=== PATIENT | male | born 1935 | race Caucasian/White ===

== ENCOUNTER 2017-06-10 05:37 | Inpatient (IN) | payer MEDICARE, OTHER ==
[2017-06-10 06:23] LABS: Hematocrit 44 % (42-52); Hemoglobin 14.6 g/dl (14.0-18.0); Mean Corpuscular HGB Conc 33 g/dl (31-36); Mean Corpuscular Hemoglobin 32 pg (27-31); Mean Corpuscular Volume 96 fL (80-94); Mean Platelet Volume 8 um3 (7.4-10.4); Red Blood Count 4.62 10^6/ul (4.0-5.4); Red Cell Distribution Width 13 % (10.5-15); White Blood Count 14.6 10^3/ul (3.5-10.8)
[2017-06-10 06:35] LABS: Albumin 4.1 g/dL (3.2-5.2); BUN/Creatinine Ratio 16.5 (8-20); Calcium 9.7 mg/dL (8.6-10.3); EGFR Non-African American 74.7 (>60); Globulin 2.9 g/dL (2-4); Potassium 3.9 mmol/L (3.5-5.0); Total Bilirubin 0.7 mg/dL (0.2-1.0)
--- NOTE | 2017-06-10 06:35 | ED ---
Chay Dixon Benjamin, scribed for Caitlin Verde MD on 06/10/17 at 0621 . Altered Mental Status - HPI Summary HPI Summary: 81yo male BIBA for confusion. Pt woke up this morning confused around 3-4am when pt got up for bathroom. Per , pt had expressive aphasia. Pt reports fever, PERALTA, fatigue, neck pain, and weakness yesterday evening. Pt denies possible tick bites. Neck pain or PERALTA has resolved, and pt is able to talk now. Last seen normal around 11pm-12am. - History Of Current Complaint Stated Complaint: CONFUSION Hx Obtained From: Patient, Family/Tar Leveler - Last Known Well Date: 11pm Onset/Duration: Resolved Timing: Constant, Lasting Minutes Severity Initially: Moderate Severity Currently: None Character: Confusion Aggravating Factor(s): Nothing Alleviating Factor(s): Nothing Associated Signs And Symptoms: Positive: Fever, Nuchal Rigity, Headache, Weakness - Allergies/Home Medications Allergies/Adverse Reactions: Allergies Allergy/AdvReac Type Severity Reaction Status Date / Time Ramipril Allergy Mild Rash Verified 03/29/15 08:31 PMH/Surg Hx/FS Hx/Imm Hx Endocrine/Hematology History: Reports: Hx Thyroid Disease - hypo Cardiovascular History: Reports: Hx Hypertension Neurological History: Denies: Other Neuro Impairments/Disorders - Surgical History Surgery Procedure, Year, and Place: right NARAYAN. cardiac stent x2 Infectious Disease History: No Infectious Disease History: Denies: Hx Clostridium Difficile, Hx Hepatitis, Hx Human Immunodeficiency Virus (HIV), Hx of Known/Suspected MRSA, Hx Shingles, Hx Tuberculosis, Hx Known/ Suspected VRE, Hx Known/Suspected VRSA, History Other Infectious Disease, Traveled Outside the [place] in Last 30 Days - Family History Known Family History: Positive: Hypertension Negative: Cardiac Disease, Diabetes - Social History Occupation: Retired Lives: With Family Alcohol Use: Rare Substance Use Type: Reports: None Smoking Status (MU): Never Smoked Tobacco Have You Smoked in the Last Year: No Review of Systems Positive: Fever, Fatigue. Negative: Chills, Skin Diaphoresis Eyes: Negative ENT: Negative Cardiovascular: Negative Respiratory: Negative Gastrointestinal: Negative Genitourinary: Negative Positive: Arthralgia - neck pain Skin: Negative Positive: Headache, Weakness Psychological: Normal All Other Systems Reviewed And Are Negative: Yes Physical Exam Triage Information Reviewed: Yes Vital Signs On Initial Exam: Initial Vitals Temp Pulse Resp BP Pulse Ox 99.1 F 83 16 157/70 96 06/10/17 05:46 06/10/17 05:46 06/10/17 05:46 06/10/17 05:46 06/10/17 05:46 Vital Signs Reviewed: Yes Appearance: Positive: Well-Appearing, No Pain Distress, Well-Nourished Skin: Positive: Warm, Skin Color Reflects Adequate Perfusion, Dry Head/Face: Positive: Normal Head/Face Inspection Eyes: Positive: EOMI, JAYLA ENT: Positive: Hearing grossly normal, Pharynx normal, TMs normal Neck: Positive: Supple, Nontender Respiratory/Lung Sounds: Positive: Clear to Auscultation, Breath Sounds Present. Negative: Rales, Rhonchi Cardiovascular: Positive: RRR. Negative: Murmur Abdomen Description: Positive: Nontender, Soft. Negative: Distended, Guarding Bowel Sounds: Positive: Present Musculoskeletal: Positive: Strength/ROM Intact Neurological: Positive: Sensory/Motor Intact, Alert, Oriented to Person Place, Time, CN Intact II-III Psychiatric: Positive: Affect/Mood Appropriate - Juan Coma Scale Coma Scale Total: 15 Diagnostics - Vital Signs Vital Signs Temp Pulse Resp BP Pulse Ox 06/10/17 06:00 16 06/10/17 05:52 88 18 96 06/10/17 05:47 99.1 F 83 16 157/70 97 06/10/17 05:46 99.1 F 83 16 157/70 96 - Laboratory Lab Results: Lab Results 06/10/17 Range/Units 05:47 WBC 14.6 H (3.5-10.8) 10^3/ul RBC 4.62 (4.0-5.4) 10^6/ul Hgb 14.6 (14.0-18.0) g/dl Hct 44 (42-52) % MCV 96 H (80-94) fL MCH 32 H (27-31) pg MCHC 33 (31-36) g/dl RDW 13 (10.5-15) % Plt Count 143 L (150-450) 10^3/ul MPV 8 (7.4-10.4) um3 Neut % (Auto) 92.4 H (38-83) % Lymph % (Auto) 2.7 L (25-47) % [place] % (Auto) 4.4 (1-9) % Eos % (Auto) 0.1 (0-6) % Baso % (Auto) 0.4 (0-2) % Absolute Neuts (auto) 13.5 H (1.5-7.7) 10^3/ul Absolute Lymphs (auto) 0.4 L (1.0-4.8) 10^3/ul Absolute Monos (auto) 0.6 (0-0.8) 10^3/ul Absolute Eos (auto) 0 (0-0.6) 10^3/ul Absolute Basos (auto) 0.1 (0-0.2) 10^3/ul Absolute Nucleated RBC 0.01 10^3/ul Nucleated RBC % 0 Result Diagrams: 06/10/17 05:47 Lab Statement: Any lab studies that have been ordered have been reviewed, and results considered in the medical decision making process. - EKG 0548. Cardiac Rate: NL - 88bpm EKG Rhythm: Sinus Rhythm ST Segment: Normal Ectopy: None National Institutes Of Health - NIH Scale Level of Consciousness: Alert/Keenly Responsive Ask Patient the Month and His/Her Age: Both Correct Ask Pt to Open/Close Eyes and Critical Care Rn/Release Non-Paretic Hand: Both Correctly Best Gaze (Only Horizontal Eye Movement): Normal Visual Field Testing: No Visual Loss Facial Paresis-Pt to Smile & Close Eyes or Grimace Symmetry: Normal/Symmetrical Motor Function - Right Arm: No Drift-Holds 10 Seconds Motor Function - Left Arm: No Drift-Holds 10 Seconds Motor Function - Right Leg: No Drift-Holds 10 Seconds Motor Function - Left Leg: No Drift-Holds 10 Seconds Limb Ataxia-Must be out of Proportion to Weakness Present: Absent Sensory (Use Pinprick to Test Arms/Legs/Trunk/Face): Normal Best Language (Describe Picture, Name Items): No Aphasia Dysarthria (Read Several Words): Normal Extinction and Inattention: No Abnormality Total Score: 0 Altered Mental Statu Course/Dx - Course Course Of Treatment: 81 yo male with confusion and aphasia this am, 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 His nih scale on arrival is zero and his symptoms have resolved, he is getting a CTA head and neck (because of the neck pain) and CT brain. His labs are just starting to come back and he does have a leukocytosis, IVF at 30 cc/kg have been ordered in case this ends up being sepsis and he will be signed out to the am physician to present to the hospitalist for admission - Diagnoses Discharge Diagnoses: Aphasia, Leucocytosis Discharge - Discharge Plan Condition: Improved Disposition: HOME The documentation as recorded by the Chay serrano Benjamin accurately reflects the service I personally performed and the decisions made by me, Caitlin Verde MD.
[2017-06-10 06:37] LABS: Troponin I 0.03 ng/mL (<0.04)
[2017-06-10] MEDS ORDERED: Iohexol 350* (CONTRAST) 500 ML MDV IV ONE ×2 (06:47→07:22)
[2017-06-10] MEDS ORDERED: NS 0.9% 1000 ML* 1,000 ML IV ONE (06:47)
[2017-06-10 08:02] LABS: Urine Bilirubin Negative (Negative); Urine Glucose Negative (Negative); Urine Nitrite Negative (Negative)
--- NOTE | 2017-06-10 08:11 | RAD ---
Indication: Confusion. Neck pain. CT of the brain was performed without IV contrast. Comparison is made with previous exam dated May 12, 2013. Ventricular structures are midline. No midline shift is noted. The extra-axial spaces are unremarkable. There is no evidence of intracranial mass or hemorrhage. Old lacunar infarct involving the left basal ganglia is noted. This was present on a prior study dated May 12, 2013 and represents old lacunar infarct. Mastoid air cells are unremarkable. Paranasal sinuses are unremarkable. IMPRESSION: Old lacunar infarct left basal ganglia. There is no evidence of intracranial mass or hemorrhage is noted.
[2017-06-10] MEDS ORDERED: Temazepam CAP* 15 MG PO PRN (08:12)
[2017-06-10] MEDS ORDERED: Al Hydrox/Mg Hydrox/Simet LIQ* 30 ML UDC PO PRN (08:12)
[2017-06-10] MEDS ORDERED: Magnesium Hydroxide LIQ* 30 ML UDC PO PRN (08:12)
[2017-06-10] MEDS ORDERED: Acetaminophen TAB* 325 MG PO PRN (08:12)
--- NOTE | 2017-06-10 08:18 | RAD ---
INDICATION: Confusion COMPARISON: None TECHNIQUE: An AP portable view obtained at 0626 hours is submitted. FINDINGS: Bones/Soft Tissues: There are no acute bony findings. Cardiomediastinal: The cardiomediastinal silhouette is normal. Lungs: There are no infiltrates. There is mild hyperinflation. Pleura: There are no pleural effusions. Other: None IMPRESSION: NO ACTIVE DISEASE.
--- NOTE | 2017-06-10 08:25 | RAD ---
Indication: Neck pain, stroke. Contrast: Administered 159.7 ml of OMNIPAQUE 350 mgi/ml CTA of the neck and head was performed after IV contrast administration. Coronal, sagittal reconstructed images were obtained. The origins of the great vessels are grossly unremarkable. No evidence of calcification is noted. The common carotid arteries are normal bilaterally. No intimal wall thickening is noted. Carotid artery bifurcations are grossly unremarkable. The cervical carotid arteries demonstrates no evidence of stenosis. No evidence of carotid artery dissection is noted. The intracavernous portions of the carotid arteries are grossly unremarkable. The vertebral arteries and basilar artery are unremarkable. No evidence of vertebral artery dissection is noted. The intracranial carotid arteries demonstrates no evidence of atherosclerosis. Normal bifurcation into the anterior and middle cerebral arteries are noted. No aneurysmal dilatation or branch occlusion is noted. The basilar artery and posterior cerebral arteries are unremarkable. No branch occlusion is noted. IMPRESSION: No aneurysmal dilatation or branch occlusion is noted. No evidence of carotid artery dissection is noted.
[2017-06-10 08:28] LABS: C Reactive Protein 91.17 mg/L (< 5.00)
[2017-06-10] MEDS ORDERED: DOXYcycline CAP(*) 100 MG PO SCH (09:00)
[2017-06-10] MEDS: Clopidogrel TAB* 75 MG PO SCH (10:19)
[2017-06-10] MEDS: Docusate CAP* 100 MG PO SCH ×2 (10:19→21:31)
[2017-06-10] MEDS: Finasteride TAB* 5 MG PO SCH (10:19)
[2017-06-10] MEDS: Aspirin EC Low Dose* 81 MG TAB.EC PO SCH ×2 (10:19→11:15)
[2017-06-10] MEDS: Atorvastatin* 40 MG TAB PO SCH (10:19)
[2017-06-10] MEDS: Levothyroxine TAB* 75 MCG TAB PO SCH (10:19)
[2017-06-10] MEDS: Atenolol TAB* 25 MG PO SCH (10:20)
[2017-06-10] MEDS: NS 0.9% 1000 ML* 1,000 ML IV SCH ×2 (10:21→18:40)
--- NOTE | 2017-06-10 11:11 | HP ---
CC: Dr. Payne; Dr. Fraser; Dr. Traore, career specialist* HISTORY AND PHYSICAL: DATE OF ADMISSION: 06/10/17 PRIMARY CARE PROVIDER: Dr. Payne. CHIEF COMPLAINT: Confusion and dizziness. HISTORY OF PRESENT ILLNESS: Mr. De Leon is a 81-year-old male with history of coronary artery disease, hypercholesterolemia, and hypertension. He had been following up with Dr. Fraser in regards also to his moderate mitral regurgitation. He had been seeing Dr. Traore ever since September due to generalized skin pruritus. So far the cause is unidentified. The patient stated that he had been in his usual state of health. 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 He stated that he was extending his neck and it was hurting him. He also stated that he developed a headache in the evening, despite that continues to go to a scheduled dinner with his friend at a restaurant. His stated that during the dinner time he did not eat that well and he complained of headache. He came home and went to bed. At around 4 a.m., he woke up in the middle of the night to go to bathroom, which he usually does not do. On the way back, he appeared confused and had difficulty finding words. The patient's stated that he sat up at the head of the bed thinking that he is on the side of the bed. She had to leave him back to his side of the bed. He complained of feeling warm. He presented to the ED for evaluation. He still has problems communicating fully what happened. It appears that although his speech is fluent and clear, he has problems with explaining his thoughts. So far the workup included mild leucocytosis. He is going to be admitted with diagnosis of transient altered mental status. PAST MEDICAL HISTORY: 1. Coronary artery disease, status post two stents in 2014 and two stents in 2003. 2. History of moderate mitral regurgitation. 3. Inguinal hernia repair on the right. 4. History of hypercholesterolemia. 5. Skin pruritus under the care of Dr. Traore that occurred in the fall of 2015. 6. Carpal tunnel in 2013. 7. Hypertension. 8. Dyslipidemia. 9. Vasectomy. 10. Right hip replacement in 2011. MEDICATIONS: The patient is supposed to be off atenolol currently. He was supposed to take 12.5 mg every other day until the 12th of this month when he was supposed to stop. Nevertheless, he continues on taking it. The remaining medications include: 1. Inspra 50 mg daily. 2. Lipitor 40 mg daily. 3. Aspirin 81 mg daily. 4. Atenolol 12.5 mg every other day. 5. Nitrostat on a p.r.n. basis. 6. Levothyroxine 75 mcg daily. 7. Proscar 5 mg daily. 8. Plavix 75 mg daily. 9. Desloratadine 5 mg daily. 10. Xyzal 5 mg daily. ALLERGIES: Include RAMIPRIL. FAMILY HISTORY: Positive for mother with history of heart disease who at the age of 84 secondary to CHF. Her heart disease started being symptomatic in her 70s. Father had history of end-stage renal disease and dialysis, in his 80s also. 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 His surrogate is his , Acacia. He denies smoking. He drinks an occasional beer. There is no history of drug use. REVIEW OF SYSTEMS: Please see history of present illness. Note at the time of admission the patient denies dyspnea on exertion. Denies chest pain. Headache that occurred yesterday resolved. Currently denies dizziness although stated that he felt dizzy and unsteady on his feet at 4 a.m. in the morning when he got up. He still feels that he is not all the way back to normal and has problems verbalizing his thoughts. He stated that usually he does not have nocturia, but he did go to the bathroom today to urinate. He denies any increased urinary urgency, frequency or dysuria. All of the remaining 14 systems were reviewed with the patient and were otherwise negative. PHYSICAL EXAMINATION GENERAL: The patient is a very pleasant 81-year-old male, who is in no acute distress. Alert, awake, and oriented x3. VITAL SIGNS: Blood pressure 140/71, heart rate of 91, regular, respiratory rate 17, oxygen saturation 98% on room air, temperature 99.1. HEENT: Head atraumatic, normocephalic. Eyes: Pupils are equal and reactive to light and accommodation. Oropharynx clear. Mucosa moist. NECK: Supple. No JVD. No bruits bilaterally. RESPIRATORY: Clear to auscultation bilaterally. CARDIOVASCULAR: Regular rate and rhythm with 1/6 systolic ejection murmur at the auscultation of the apex. ABDOMEN: Soft and nontender. Bowel sounds present in all 4 quadrants. EXTREMITIES: There is no edema. Pulses +2 bilaterally. No clubbing or cyanosis. SKIN: On the evaluation of the skin, the patient has slight skin erythema, which appears to be mostly due to excoriations noted on his anterior trunk. There are a couple of tiny pustular eruptions noted in the area also. No other rashes are noted. NEUROLOGIC: Speech is clear. Cranial nerves II through XII are grossly intact. Motor strength is 5/5 bilaterally. He has no dysarthria. He does have some speech hesitancy, and he has troubles with otherwise overall explaining what happened in the past 24 hours. 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 [id number] is not dysmetric bilaterally. PSYCHIATRIC EVALUATION: The patient is oriented x3 with no evidence of anxiety or depression. LABORATORY DATA: Showed white blood cell count of 14.6, hemoglobin of 14.6, hematocrit of 44, MCV of 96, and platelets of 143. INR is 1.16. Sodium is 132, potassium 3.9, chloride 102, carbon dioxide 23, BUN 16, creatinine 0.97. Liver function tests unremarkable. C-reactive protein pending. Troponin of 0.03. Urinalysis shows specific gravity of 1.051, otherwise unremarkable. Portable chest x-ray impression: "No active disease." Brain CT impression: "Old lacunar left basal ganglia infarct. There was no evidence of intracranial mass or hemorrhage is noted." CT angiogram of the head and neck is pending at the time of dictation. The patient's EKG shows heart rate of 88 beats per minute with ventricular conduction delay. No specific ST changes in leads V2 and V3, most likely related to J-point elevation. Comparing from 2012 EKG which was similar. ASSESSMENT AND PLAN: Speech hesitancy, dizziness, and altered mental status in a patient who has mild leukocytosis. He had some nonspecific symptoms of headache and neck pain yesterday that resolved. He does have a history of being at picnic outdoors in the past several days. He walks his dog outdoors all the time. He did not notice tick bites though. At this point, differential is either of infectious etiology, which could be related to Lyme disease or any other infection for that matter. The patient's CRP is pending at the time of dictation. It could be also related to new ischemic CVA. At this point, his CT angiogram of the head is still pending and MRI is going to be obtained. The patient is going to be placed on overnight observation on telemetry monitored bed. Neuro checks are going to be instituted every 2 hours. The patient is going to be continued on aspirin and Plavix as antiplatelet medications. Due to leukocytosis and history of recent picnic, the patient is going to be placed empirically on doxycycline for possibility of Lyme disease and Lyme titers are going to be obtained. He is also going to be placed on intravenous hydration due to that his urine is definitely concentrated and indicates dehydration. In regards to his hypertension, he is going to be continued at this point on atenolol 12.5 mg daily. Inspra is not on the hospital formulary. In regards to the patient's dyslipidemia, his statin is going to be continued. For BPH, Proscar is going to be continued on daily basis. For DVT prophylaxis, the patient is going to be placed on heparin subcutaneously. The patient's code status is full and his surrogate is his . TIME SPENT: Approximately 72 minutes were spent on admission of this patient, more than half that time was spent [id number] with the patient during the interview and physical exam. ADDENDUM TO HISTORY AND PHYSICAL: Please note that just prior to patient's transfer from the emergency department to the inpatient unit, the patient developed a fever of 101. At this point, I will discontinue the patient's doxycycline and order ceftriaxone intravenously to treat empirically Lyme disease. So far, there are no other signs or symptoms to suggest any other infection. The patient's urinalysis had been unremarkable and chest x-ray also was within normal limits. Lyme disease serology is pending at the time of dictation. The patient's CT angiogram of the head was unremarkable also. The patient most likely had a toxic metabolic encephalopathy due to systemic inflammatory response syndrome due to unknown infection. Those above mentioned are present at admission. [id number] #: [id number] #: [id number] [facility] DIVISIONDeana
--- NOTE | 2017-06-10 11:31 | RAD ---
Indication: Stroke, confusion. Image sequences: Sagittal and axial T1, axial T2, FLAIR, diffusion and susceptibility weighted images of the brain were obtained. Ventricular structures are midline. No midline shift is noted. The extra-axial spaces are prominent consistent with atrophy. There is no evidence of intracranial mass or hemorrhage. No restriction of diffusion is noted. Susceptibility weighted images demonstrates no evidence of susceptibility artifact residual hemosiderin. FLAIR images demonstrates no evidence of vasogenic edema. Mastoid air cells and paranasal sinuses are unremarkable. IMPRESSION: No acute changes are noted. Central and cortical atrophy with no evidence of restriction of diffusion.
--- NOTE | 2017-06-10 12:36 | HP ---
HISTORY AND PHYSICAL: ADDENDUM: Please note that just prior to patient's transfer from the emergency department to the in patient unit, the patient developed a fever of 101. At this point, I will discontinue the patient's doxycycline and order ceftriaxone intravenously to treat empirically Lyme disease. So far, there a re no other signs or symptoms to suggest any other infection. The patient's urinalysis had been unr emarkable and chest x-ray also was within normal limits. Lyme disease serology is pending at the ti me of dictation. The patient's CT angiogram of the head was unremarkable also. The patient most frank vyas had a toxic metabolic encephalopathy due to systemic inflammatory response syndrome due to unkn own infection. Those above mentioned are present at admission. [id number] #: [id number]
[2017-06-10] MEDS: Heparin VIAL(*) 5000 UNITS/ML VIAL (FIVE THOUSAND) SUBCUT SCH ×2 (12:59→21:43)
[2017-06-10] MEDS: cefTRIAXone VIAL(*) 1,000 MG in NS 0.9% 50 ML* 50 ML IVPB SCH (12:59)
[2017-06-10] MEDS: metroNIDAZOLE TAB* 250 MG PO SCH ×2 (16:15→21:43)
[2017-06-11] MEDS: NS 0.9% 1000 ML* 1,000 ML IV SCH ×2 (01:28→08:45)
[2017-06-11 05:01] LABS: Hematocrit 39 % (42-52); Mean Corpuscular HGB Conc 33 g/dl (31-36); Mean Corpuscular Hemoglobin 32 pg (27-31); Mean Corpuscular Volume 97 fL (80-94); Mean Platelet Volume 7 um3 (7.4-10.4); Red Blood Count 4.08 10^6/ul (4.0-5.4); Red Cell Distribution Width 13 % (10.5-15); White Blood Count 9.5 10^3/ul (3.5-10.8)
[2017-06-11 05:57] LABS: BUN/Creatinine Ratio 19.7 (8-20); EGFR African American 127.2 (>60); EGFR Non-African American 98.9 (>60); Potassium 3.4 mmol/L (3.5-5.0)
[2017-06-11] MEDS: Heparin VIAL(*) 5000 UNITS/ML VIAL (FIVE THOUSAND) SUBCUT SCH ×3 (06:50→21:39)
[2017-06-11] MEDS: Clopidogrel TAB* 75 MG PO SCH (08:48)
[2017-06-11] MEDS: Aspirin EC Low Dose* 81 MG TAB.EC PO SCH (08:48)
[2017-06-11] MEDS: Levothyroxine TAB* 75 MCG TAB PO SCH (08:48)
[2017-06-11] MEDS: Atenolol TAB* 25 MG PO SCH (08:48)
[2017-06-11] MEDS: Finasteride TAB* 5 MG PO SCH (08:48)
[2017-06-11] MEDS: metroNIDAZOLE TAB* 250 MG PO SCH ×3 (08:48→21:38)
[2017-06-11] MEDS: Atorvastatin* 40 MG TAB PO SCH (08:48)
[2017-06-11] MEDS: Docusate CAP* 100 MG PO SCH ×2 (08:48→21:39)
[2017-06-11] MEDS: cefTRIAXone VIAL(*) 1,000 MG in NS 0.9% 50 ML* 50 ML IVPB SCH (12:44)
--- NOTE | 2017-06-11 15:34 | ED ---
Isai Dixon Auryana, scribed for Alexandre Montiel MD on 06/10/17 at 0854 . Progress - Progress Note Progress Note: Sign out from Dr. Verde to Dr. Montiel pending imaging results. 81 year old male presents to the ED with possible TIA. Patient reports that he is feeling better on ED physician visit. Dr. Chan is the admitting physician. - Results/Orders Results/Orders: CXR - NAD. CTA HEAD/NECK IMPRESSION: No aneurysmal dilatation or branch occlusion is noted. No evidence of carotid artery dissection is noted. CT BRAIN WO IMPRESSION: Old lacunar infarct left basal ganglia. There is no evidence of intracranial mass or hemorrhage is noted. Course/Dx - Course Course Of Treatment: Sign out from Dr. Verde to Dr. Montiel pending imaging results. 81 year old male presents to the ED with possible TIA. Patient reports that he is feeling better on ED physician visit. Dr. Chan is the admitting physician. CXR - NAD. CTA HEAD/NECK IMPRESSION: No aneurysmal dilatation or branch occlusion is noted. No evidence of carotid artery dissection is noted. CT BRAIN WO IMPRESSION: Old lacunar infarct left basal ganglia. There is no evidence of intracranial mass or hemorrhage is noted. Dr. Chan agrees to admit the patient to [facility] [place]. - Diagnoses Provider Diagnoses: Aphasia, Leucocytosis The documentation as recorded by the Isai serrano Auryana accurately reflects the service I personally performed and the decisions made by , Alexandre Montiel MD.
[2017-06-11] MEDS ORDERED: Potassium Chlor TAB* 10 MEQ TAB.ER PO ONE (16:58)
[2017-06-11] MEDS ORDERED: Magnesium Sulf 4 GM/100 ML IV* 4,000 MG/100 ML BAG IVPB ONE (17:30)
[2017-06-11] MEDS: KCL 20 MEQ/100 ML IVPREMIX* 20 MEQ/100 ML BAG IV SCH ×2 (18:22→22:49)
[2017-06-12 05:08] LABS: Hematocrit 38 % (42-52); Hemoglobin 12.6 g/dl (14.0-18.0); Mean Corpuscular HGB Conc 34 g/dl (31-36); Mean Corpuscular Hemoglobin 32 pg (27-31); Mean Corpuscular Volume 97 fL (80-94); Mean Platelet Volume 8 um3 (7.4-10.4); Red Blood Count 3.89 10^6/ul (4.0-5.4); Red Cell Distribution Width 13 % (10.5-15); White Blood Count 4.6 10^3/ul (3.5-10.8)
[2017-06-12 05:21] LABS: Albumin 3.1 g/dL (3.2-5.2); BUN/Creatinine Ratio 19.4 (8-20); Calcium 8.9 mg/dL (8.6-10.3); EGFR African American 147.2 (>60); EGFR Non-African American 114.4 (>60); Globulin 2.9 g/dL (2-4); Magnesium 2.1 mg/dL (1.9-2.7); Phosphorus 1.3 mg/dL (2.5-5.0); Potassium 4.1 mmol/L (3.5-5.0); Total Bilirubin 0.4 mg/dL (0.2-1.0)
[2017-06-12] MEDS: Heparin VIAL(*) 5000 UNITS/ML VIAL (FIVE THOUSAND) SUBCUT SCH (05:49)
[2017-06-12] MEDS: Levothyroxine TAB* 75 MCG TAB PO SCH (09:26)
[2017-06-12] MEDS: Aspirin EC Low Dose* 81 MG TAB.EC PO SCH (09:26)
[2017-06-12] MEDS: Clopidogrel TAB* 75 MG PO SCH (09:26)
[2017-06-12] MEDS: Atenolol TAB* 25 MG PO SCH (09:26)
[2017-06-12] MEDS: Finasteride TAB* 5 MG PO SCH (09:26)
[2017-06-12] MEDS: Atorvastatin* 40 MG TAB PO SCH (09:26)
[2017-06-12] MEDS: metroNIDAZOLE TAB* 250 MG PO SCH (09:26)
[2017-06-12] MEDS: Docusate CAP* 100 MG PO SCH (10:00)
[2017-06-12 12:55] VITALS: BP 155/75
--- NOTE | 2017-06-12 17:42 | PN ---
Subjective Date of Service: 06/11/17 Interval History: . He is still quite fatigued and weak with walking. denies apin - but ongoing diarrhea and related dehydration. Both his and he wish to remain in the hospital until tomorrow and feel he is too unsteady walking. they fear he will pass out based on his experience walking to the bathroom inside the room (when he almost passed out and became tachycardic). I agreed it was reasonable to continue to hydrate him and observe for resolution of his diarrhea (and give more IV antibiotics). . Family History: Unchanged from Admission Social History: Unchanged from Admission Past Medical History: Unchanged from Admission Objective Vital Signs 06/11/17 06/11/17 06/11/17 17:40 17:50 18:00 Temperature Pulse Rate Respiratory 23 20 18 Rate Blood Pressure (mmHg) O2 Sat by Pulse Oximetry 06/11/17 06/11/17 06/11/17 18:10 18:20 18:30 Temperature Pulse Rate Respiratory 16 21 14 Rate Blood Pressure (mmHg) O2 Sat by Pulse Oximetry Oxygen Devices in Use Now: Nasal Cannula Appearance: NAD at rest - weak with any walking; tired appearing. Ears/Nose/Mouth/Throat: Clear Oropharnyx Neck: NL Appearance and Movements; NL JVP Respiratory: Symmetrical Chest Expansion and Respiratory Effort Cardiovascular: NL Sounds; No Murmurs; No JVD Abdominal: - - diffuse tenderness Lymphatic: No Cervical Adenopathy Extremities: No Edema Skin: No Rash or Ulcers Neurological: Alert and Oriented x 3 Lines/Tubes/Other Access: Clean, Dry and Intact Peripheral IV Nutrition: Taking PO's Result Diagrams: 06/12/17 04:29 06/12/17 04:29 Additional Lab and Data: . Assess/Plan/Problems-Billing . Assessment: 81 yo man with acute gastrointestinal infection with diarrhea and fever and dehydration and electrolyte derangements. hypokalemia leukocytosis hypophosphatemia . - Patient Problems (1) Acute infective gastroenteritis Status: Acute Priority: High Code(s): A09 - INFECTIOUS GASTROENTERITIS AND COLITIS, UNSPECIFIED Comment: - continue IV antibiotics - leokocytosis noted, resolving - diarrhea noted (2) Hypokalemia Status: Acute Priority: High Code(s): E87.6 - HYPOKALEMIA (3) Metabolic acidosis Status: Acute Priority: High Code(s): E87.2 - ACIDOSIS (4) Hypophosphatemia Status: Acute Priority: High Code(s): E83.39 - OTHER DISORDERS OF PHOSPHORUS METABOLISM (5) Weakness generalized Status: Acute Priority: High Code(s): R53.1 - WEAKNESS
--- NOTE | 2017-06-12 17:44 | PN ---
Hospitalist Progress Note . HOSPITALIST DISCHARGE NOTE: See dc instructions and summary by me. Patient stable for dc dc instructions reviewed with the patient at the bedside. DC patient home today.
--- NOTE | 2017-06-15 16:11 | DS ---
DISCHARGE SUMMARY: DATE OF ADMISSION: 06/10/17 DATE OF DISCHARGE: 06/12/17 STATUS DURING HOSPITALIZATION: Inpatient. PRIMARY CARE PROVIDER: Armando Payne MD PRINCIPAL DISCHARGE DIAGNOSIS: Confusion and dizziness secondary to enteritis/ colitis. SECONDARY DIAGNOSES: 1. Coronary artery disease status post stenting in 2014 and back in 2003 (both episodes with 2 stents). 2. History of moderate mitral regurgitation. 3. Inguinal hernia repair on the right. 4. History of hypercholesterolemia. 5. Skin pruritus, under the care of Dr. Traore since fall in 2015. 6. Hypertension. 7. Carpal tunnel repair in 2013. 8. Vasectomy. 9. History of right hip replacement in 2011. DISCHARGE MEDICATION REGIMEN: New: 1. Ciprofloxacin 500 mg by mouth twice daily for 10 days. 2. Metronidazole 500 mg by mouth 3 times daily for 5 days, then stop. Continue all other medications includin. Aspirin 81 mg by mouth daily. 2. Atenolol 25 mg by mouth daily. 3. Lipitor 40 mg by mouth daily. 4. Clopidogrel 75 mg by mouth daily. 5. Desloratadine 5 mg by mouth daily. 6. Doxepin 75 mg by mouth at bedtime. 7. Eplerenone 50 mg by mouth daily. 8. Finasteride 5 mg by mouth daily. 9. Levothyroxine 75 mcg by mouth daily. 10. Nitroglycerin tab 0.4 mg strength 1 tab sublingually q.5 minutes p.r.n. chest pain, then call 911 if no relief. 11. Xyzal 5 mg by mouth daily. HISTORY OF PRESENT ILLNESS AND HOSPITAL COURSE: Please see the H and P by Dr. Annie Chan on 06/10/17. In brief, Mr. De Leon is a 81-year-old man with a history stated above who has been seeing Dr. Fraser for moderate mitral regurgitation and Dr. Traore for generalized skin pruritus. The patient states he was in his usual state of health until he was extending his neck and it was hurting him. He had headache in the evening that did not prevent him from going out to dinner with a friend. During the dinner, he did not eat well and complained of an ongoing headache. The patient came home and went to bed early and awoke around 4 a.m. the next morning to go to the bathroom and on the way back appeared confused and had difficulty finding words. The patient alerted his who urged him to come to the hospital. The workup was unremarkable at the emergency room with his speech being fluent and clear, although he had problems explaining his thoughts. He was noted to have a mild leukocytosis. The patient was admitted with an initial diagnosis of TIA. An urgent MRI did not show any intracranial abnormality. The patient then proceeded with spiking a high fever greater than 100 degrees Celsius with a peak of 102.5 as well as copious diarrhea. The patient was started on Cipro and Flagyl and very soon after that defervesced. Again, his initial white count was 14.6 and that was on 06/10/17 and the repeat CBC on 06/11/17 was a white count of 9.5. The patient was aggressively hydrated. He had 1 value of hypokalemia of 3.4 on 06/11/17 in the morning. This was repleted and by the morning of 06/12/17, his potassium was greater than 4. His phos was modestly depressed at 1.5. He did receive some phosphorus supplementation, though his repeat was not checked. His fever curve have normalized. He is not tachycardic at this time. He is not having appreciable diarrhea the morning of 06/12/17 and he is stable to be discharged home. I spent most of the discharge encounter talking about his hives and itching and discussing different antihistamines. At the time I spoke to him, I did not realize he was actually on an antihistamine and so when I went to discharge him, I did not start a new agent and referred him back to Dr. Traore who clearly has a greater amount of information about this particular problem and should be coordinating the treatment. Mr. De Leon was okay with that. Instructions for discharge were given to the patient and his and I gave him instructions to come back to the emergency room if he has any worrisome symptoms. CONDITION AT DISCHARGE: Stable. [id number]/[facility] #: [id number] [facility] CENTERDeana
== END 2017-06-12 13:18 | disposition home or self-care (01) | DRG 392 ==
LOC: ED 05:37 → MEDTELE 07:31 → OBSVTOIN 06-11 16:00
PROVIDERS: ADMIT Internal Medicine; ATTEND Internal Medicine
DX: A09 Infectious gastroenteritis and colitis, unspecified (principal); E87.2 Acidosis; I34.0 Nonrheumatic mitral (valve) insufficiency; E86.0 Dehydration; I25.10 Atherosclerotic heart disease of native coronary artery without angina pectoris; E78.00 Pure hypercholesterolemia, unspecified; I10 Essential (primary) hypertension; E78.5 Hyperlipidemia, unspecified; Z96.641 Presence of right artificial hip joint; N40.0 Benign prostatic hyperplasia without lower urinary tract symptoms; E03.9 Hypothyroidism, unspecified; R40.2412 Glasgow coma scale score 13-15, at arrival to emergency department; R29.700 NIHSS score 0; E87.6 Hypokalemia; E83.42 Hypomagnesemia; E83.39 Other disorders of phosphorus metabolism; R53.1 Weakness; L29.9 Pruritus, unspecified; Z95.5 Presence of coronary angioplasty implant and graft; Z98.52 Vasectomy status; Z88.8 Allergy status to other drugs, medicaments and biological substances; Z82.49 Family history of ischemic heart disease and other diseases of the circulatory system; Z84.1 Family history of disorders of kidney and ureter; Z79.82 Long term (current) use of aspirin; Z79.02 Long term (current) use of antithrombotics/antiplatelets
CPT/HCPCS: 36415; 70450; 70496; 70498; 70551; 71010; 80048; 80053; 81003; 83605; 83735; 84100; 84484; 85025; 85610; 86140; 86618; 87040; 87493; 93005; A9270-GY; G0378; J0696; J1644; J3480; Q9967

== ENCOUNTER 2017-12-25 11:35 | Day surgery (SDC) | payer MEDICARE, OTHER ==
[~2017-12-25 11:35] MED LIST: Buffered Lidocaine 0.9% SYRIN* 5 ML/SYR SYRINGE INTRADERM ONE; Metoclopramide TAB* 10 MG PO ONE; Naloxone* 0.4 MG/ML 1 ML VIAL IV PRN; fentaNYL* 50 MCG/ML 2 ML VIAL (100 MCG VIAL) IV PRN; oxyCODONE/Acetamin 5/325 MG* TAB PO PRN
[2017-12-25] MEDS ORDERED: Ketorolac INJ* 30 MG/ML 1 ML VIAL ONE (11:40)
[2017-12-25] MEDS ORDERED: Propofol* 10 MG/ML 20 ML BTL IV PUSH ONE (11:40)
[2017-12-25] MEDS ORDERED: Dexamethasone IV* 4 MG/ML 1 ML (4 MG) ONE (11:40)
[2017-12-25] MEDS ORDERED: Ondansetron INJ* 2 MG/ML VIAL ONE (11:40)
[2017-12-25] MEDS ORDERED: Lidocaine 2% PF * 5 ML VIAL ONE (11:40)
[2017-12-25] MEDS ORDERED: fentaNYL* 50 MCG/ML 2 ML VIAL (100 MCG VIAL) ONE ×2 (11:40→13:27)
[2017-12-25] MEDS ORDERED: Midazolam* 1 MG/ML 2 ML VIAL (2 MG) ONE (11:40)
[2017-12-25] MEDS ORDERED: Metoclopramide TAB* 10 MG ONE (12:06)
[2017-12-25] MEDS ORDERED: Bupivacaine 0.25% SDV* 30 ML ONE (14:06)
[2017-12-25 15:32] VITALS: BP 155/82
--- NOTE | 2017-12-26 01:13 | OP ---
DATE OF OPERATION: 12/25/17 - [facility] DATE OF : 39 SURGEON: Adolfo Mendez MD KISS MACHINE OPERATOR: AMARA Alonzo ANESTHESIOLOGIST: Dr. Archer. ANESTHESIA: Local MAC. PRE-OP DIAGNOSIS: Left carpal tunnel syndrome. POST-OP DIAGNOSIS: Left carpal tunnel syndrome. OPERATIVE PROCEDURE: Left open carpal tunnel release. INDICATIONS: Hermes has had progressive carpal tunnel. We walked about risks and benefits and he wanted to proceed. ESTIMATED BLOOD LOSS: 2 mL. COMPLICATIONS: None. FINDINGS: As expected. DESCRIPTION OF PROCEDURE: Hermes was seen in the preoperative holding area. The correct side, site, and procedure were identified. We came back to the operating room where the arm was prepped and draped in the usual fashion. A time-out was performed. The arm was exsanguinated and the tourniquet inflated to 250 mmHg. I made a 2 to 3-cm longitudinal incision in the standard location for an open carpal tunnel release. Dissection was carried down through the subcutaneous tissue and palmar fascia. The transverse carpal tunnel ligament was released just off the radial aspect of the hook of the hamate. The release was completed distally and proximally. I released the fascia and subcutaneous tissues were retracted to set it away with a Yanna retractor. Under direct visualization, I released the remainder of the transverse carpal ligament and distal antebrachial fascia to a level several centimeters proximal to the wrist flexion crease. Everything was looking good. The nerve was very nicely decompressed. I therefore irrigated out the wounds. Skin was closed with 4-0 nylon and wound was dressed with Xeroform, 4x4s, sterile Webril, and then Dieudonne wrap. He was taken to the recovery room in stable condition. [id number]/[facility] #: [id number] [facility]ITALDeana
== END 2017-12-25 15:25 | disposition home or self-care (01) ==
LOC: OREAST 11:35
PROVIDERS: ATTEND Orthopaedic Surgery Hand Surgery
DX: G56.03 Carpal tunnel syndrome, bilateral upper limbs (principal); I10 Essential (primary) hypertension; E78.00 Pure hypercholesterolemia, unspecified; E07.89 Other specified disorders of thyroid; Z79.82 Long term (current) use of aspirin; Z88.8 Allergy status to other drugs, medicaments and biological substances
CPT/HCPCS: A9270-GY; J1100; J1885; J2250; J2405; J2704; J3010

== ENCOUNTER 2018-01-18 11:00 | Emergency (ER) | payer MEDICARE, OTHER ==
--- OUTSIDE RECORDS SUMMARY | 2018-01-18 12:55 | XMS REPORT ---
:1935 External Reference #:[id number] Author Organization [facility] Address [address] [address] Phone [phone] Care Team Providers Name Role Phone Armando Payne MD Primary Care Physician Unavailable Payers Type Date Identification Numbers Payment Provider Subscriber Medicare Primary Effective: Policy Number: Medicare Hermes De Leon 2002 [id number] PayID: [id number] [address] [place] [address] Medigap Part B Policy Number: [id number] [employer] Hermes De Leon Group Number: [id number] [address] Group Name: [place] [address] PayID: [id number] Problems Date Description Provider Status Onset: 01/23/2012 Coronary arteriosclerosis Artemio Fraser M.D. Active Onset: 01/23/2012 Benign essential hypertension Artemio Fraser M.D. Active Onset: 01/23/2012 Pure hypercholesterolemia Artemio Fraser M.D. Active Onset: 09/28/2013 Mitral valve disorder Artemio Fraser M.D. Active Onset: 10/05/2015 Essential hypertension Artemio Fraser M.D. Active Onset: 11/26/2017 Bilateral carpal tunnel syndrome Adolfo Mendez MD Active Family History Date Family Member(s) Problem(s) Comments : (age 75 Years) Father due to Renal Failure : (age 84 Years) Mother due to CHF Social History Type Date Description Comments Marital Status Lives With Occupation Semi-retired Cigarette Use Never Smoked Cigarettes ETOH Use Occasionally consumes alcohol Smoking Patient has never smoked Recreational Drug Use Denies Drug Use Daily Caffeine Consumes on average 2 cups of regular coffee per day Exercise Type/Frequency Negative For Exercises rarely Exercise Type/Frequency Exercises sporadically Exercise Type/Frequency walks a lot Allergies, Adverse Reactions, Alerts Date Description Reaction Status Severity Comments 05/03/2012 Ramipril 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 by mouth Mauser, every M.D. evening Amlodipine Besylate 08/06 Active Tablets 2.5mg 270ta 2 by Artemio /2016 bs mouth in F. morning Mauser, and 2 by M.DAustin mouth at night Inspra 12/15 Active Tablets 25mg 180ta 2 by Artemio /2015 bs mouth F. every Mauser, day M.D. Aspirin 09/28 Active Tablets 81mg 1 po qd F. Chun Fraser Nitrostat 05/02 Active Tablets 0.4mg 25tab One SL s Q5Min Up F. To 3 Mauser, Doses M.D. prn Levoxyl Active Tablets 75mcg 1 tab qd Unknown /0000 Proscar Active Tablets 5mg 1 by Unknown /0000 mouth every day Doxepin HCL Active Capsules 25mg 3 cap at Unknown /0000 bedtime Levocetirizine Active Tablets 5mg 1 by Unknown Dihydrochloride /0000 mouth every day in the evening Desloratadine Active Tablets 5mg 1 by Unknown /0000 mouth every day in the morning Tramadol HCL 12/25 Hx Tablets 50mg 30tab 1 tablet s by mouth Mendez, - every 6 MD 01/07 hours needed pain Rosuvastatin 08/21 Hx Tablets 20mg 90tab 1/2 tab E78.00 Artemio Calcium s by mouth F. - every Mausechristian, 12/08 night at M.D. /2018 bedtime Amlodipine Besylate 12/07 Hx Tablets 5mg 30tab 1 by I10 s mouth F. - every Mauser, 12/15 day M.D. Nitro-Dur 10/05 Hx Patches 0.2mg/HR 30uni 1 patch I25.118 24HR ts every F. - day on Mauser, 10/11 in the M.D. /2014 in the morning, off in the at night Lipitor 02/02 Hx Tablets 40mg 90tab 1 by s mouth at F. - bedtime Mauser, 08/21 M.D. Simvastatin 01/22 Hx Tablets 40mg 1 PO QHS Elmer, /2012 MD Armando - 02/02 Glucosamine-Chondro 01/31 Hx Liquid [id number] bid Unknown itin /2010 mg/30ML - 11/29 Simvastatin 03/22 Hx Tablets 80mg 90tab 1/2 po s qhs F. - Mauser, 08/24 M.D. Aspirin 12/30 Hx Tablets 81mg 1 po qd F. - Mauser, 08/24 M.D. Simvastatin 08/15 Hx Tablets 80mg 90tab 1 PO QHS s F. - Mauser, 03/22 M.D. Simvastatin 03/21 Hx Tablets 20mg 90tab 1 PO qd s F. - Mauser, 06/23 M.D. Allergy Shots 12/31 Hx Weekly F. - Mauser, 08/24 M.D. Zocor 12/31 Hx Tablets 20mg 90tab 1 po qhs s F. - Mauser, 03/21 M.D. /2007 Vytorin 01/28 Hx Tablets 10-10mg 90tab 1 po qd s F. - Mauser, 12/31 M.D. /2007 Fish Oil 12/31 Hx 1000mg 1 po qd F. - Mauser, 09/28 M.D. /2012 Vytorin 10/02 Hx Tablets 10mg;10 30tab 1 po qd mg s F. - Mauser, 10/02 M.D. Vytorin 10/02 Hx Tablets 10mg;20 1 po qd mg F. - Mauser, 01/28 M.D. Zetia 08/15 Hx Tablets 10mg 90tab 1 po qd s F. - Mauser, 12/31 M.D. /2006 Altace 07/03 Hx Capsules 2.5mg 90cap 1 po qd s F. - Mauser, 05/03 M.D. /2011 Atenolol 01/23 Hx Tablets 25mg / tab po every F. - other Mauser, M.D. Levoxyl 01/23 Hx Tablets 175mcg 1 po qd F. - Mauser, 03/22 M.D. Vytorin 01/23 Hx Tablets 10mg;20 90tab 1 po qd mg s F. - Mauser, 08/15 M.D. /2005 Niaspan Extended 10/05 Hx Tablets 500mg 30tab 1 po qpm Artemio s F. - Mauser, 03/04 M.D. Lipitor 05/18 Hx Tablets 10mg 1 po qd F. - Mauser, 01/23 M.D. Atenolol 05/09 Hx Tablets 37.5mg 1 po qd F. - Mauser, 01/23 M.D. [place] Thyroid 05/03 Hx Tablets 60mg 30tab 1 po s m-w-f-sa F. - t Mauser, 01/23 M.D. [place] Thyroid 05/03 Hx Tablets 120mg 30tab 1 po s rozina-rashad F. - rs-sun Mauser, 01/23 M.D. /2004 Atenolol 05/03 Hx Tablets 25mg 90tab 1 po qd s F. - Mauser, 05/09 M.D. Folgard Rx 05/03 Hx Tablets 0.5mg;2.2 90tab 1 po qd mg;25MG s F. - Mauser, 06/22 M.D. Aspirin 05/02 Hx Suppositor 162mg 1 po qd Artemio F. - Mauser, 05/03 M.D. Atenolol 05/02 Hx Tablets 25mg 30tab 1 po bid Artemio s F. - Mauser, 05/03 M.D. Lipitor 05/02 Hx Tablets 40mg 30tab 1 po qd Artemio s F. - Mauser, 05/18 M.D. Plavix 05/02 Hx Tablets 75mg 30tab 1 po qd s F. - Mauser, 12/25 M.D. Aspirin Enteric 05/02 Hx Tablets 81mg 2 po qd Artemio F. - Mauser, 12/30 M.D. Simvastatin Hx Tablets 40mg 1 PO QHS Unknown /0000 - 08/15 Glucosamine-Chondro Hx Liquid [id number] bid Unknown itin /0000 mg/30ML hold - 01/31 Advil Hx 200 mg 2 Unknown /0000 tabs bid - 01/31 Vitamin C Hx 500mg 1 po qd Unknown /0000 - 06/10 Vit D Hx 2000Units one po Unknown /0000 qd - 08/24 Hydrochlorothiazide Hx Capsules 12.5mg 90cap 1 po qd Unknown /0000 s - 08/24 Vitamin D3 High Hx Capsules 1000Unit 30cap 1 by Unknown Potency /0000 s mouth - every 05/19 day( hold) Vitamin C Hx Capsules 500mg 1 by Unknown /0000 mouth - every 05/19 day ( hold) Clopidogrel Hx Tablets 75mg 90tab 1 by Artemio Bisulfate /0000 s mouth F. - every Mause, 08/06 day M.D. /2016 Prednisone Hx Tablets 20mg take 1 Unknown /0000 tablet - by mouth 12/25 twice a day Vital Signs Date Vital Result Comment 01/07/2018 Height 69.75 inches 5'9.75" Weight 198.00 lb Heart Rate 73 /min Respiratory Rate 14 /min Body Temperature 97.6 F Pain Level 0 BMI (Body Mass Index) 28.6 kg/m2 11/26/2017 Height 69.75 inches 5'9.75" Weight 198.00 lb Heart Rate 66 /min BP Systolic 142 mmHg BP Diastolic 78 mmHg Respiratory Rate 18 /min Body Temperature 97.3 F Pain Level 6 BMI (Body Mass Index) 28.6 kg/m2 08/21/2017 Height 69.75 inches 5'9.75" Weight 199.00 lb with boots Heart Rate 70 /min BP Systolic Sitting 168 mmHg Lue reg cuff BP Diastolic Sitting 74 mmHg Lue reg cuff BP Systolic Standing 148 mmHg Lue reg cuff BP Diastolic Standing 80 mmHg Lue reg cuff Respiratory Rate 16 /min BMI (Body Mass Index) 28.8 kg/m2 Ejection Fraction 60-65% echo 11/0705/20/2017 Height 69.75 inches 5'9.75" Weight 192.25 lb with shoes Heart Rate 58 /min BP Systolic Sitting 172 mmHg LA reg cuff BP Diastolic Sitting 96 mmHg LA reg cuff BP Systolic Standing 158 mmHg la repeat sitting BP Diastolic Standing 86 mmHg la repeat sitting BMI (Body Mass Index) 27.8 kg/m2 Ejection Fraction 60% - 65% echo 10/27/15 08/16/2016 Height 69.75 inches 5'9.75" Weight 189.00 lb with shoes Heart Rate 70 /min BP Systolic Sitting 156 mmHg LA reg cuff BP Diastolic Sitting 78 mmHg LA reg cuff BP Systolic Standing 160 mmHg LA reg cuff BP Diastolic Standing 82 mmHg LA reg cuff Respiratory Rate 16 /min BMI (Body Mass Index) 27.3 kg/m2 Ejection Fraction 60-65% 10/27/15 07/16/2016 Weight 185.00 lb with shoes Heart Rate 58 /min BP Systolic Sitting 124 mmHg La reg cuff BP Diastolic Sitting 66 mmHg La reg cuff Respiratory Rate 15 /min Ejection Fraction 60-65% date 10/27/15 ECHO 03/26/2016 Weight 195.00 lb with shoes Heart Rate 56 /min BP Systolic Sitting 150 mmHg LA reg cuff BP Diastolic Sitting 86 mmHg LA reg cuff BP Systolic Standing 160 mmHg LA reg cuff BP Diastolic Standing 90 mmHg LA reg cuff Respiratory Rate 16 /min 02/08/2016 Heart Rate 68 /min BP Systolic 150 mmHg LA, reg BP Diastolic 80 mmHg LA, reg BP Systolic Sitting 158 mmHg Ra BP Diastolic Sitting 78 mmHg Ra BP Systolic Standing 158 mmHg Ra, reg BP Diastolic Standing 72 mmHg Ra, reg BP Systolic Recheck 140 mmHg LA,s/p rest BP Diastolic Recheck 78 mmHg LA,s/p rest 12/26/2015 Height 71 inches 5'11" Weight 198.00 lb with shoes Heart Rate 62 /min BP Systolic Sitting 130 mmHg LA reg cuff BP Diastolic Sitting 80 mmHg LA reg cuff BP Systolic Recheck 138 mmHg Auto BP home BP Diastolic Recheck 83 mmHg Auto BP home Respiratory Rate 16 /min BMI (Body Mass Index) 27.6 kg/m2 Ejection Fraction 60-65% date 10/27/15 ECHO 12/11/2015 Height 71 inches 5'11" Heart Rate 64 /min regular BP Systolic Sitting 148 mmHg right arm reg cuff BP Diastolic Sitting 78 mmHg right arm reg cuff BP Systolic Standing 146 mmHg right arm reg cuff BP Diastolic Standing 76 mmHg right arm reg cuff Respiratory Rate 18 /min 12/07/2015 Height 71 inches 5'11" Weight 194.00 lb w/o shoes Heart Rate 64 /min reg BP Systolic 156 mmHg Lue, reg cuff BP Diastolic 90 mmHg Lue, reg cuff BP Systolic Sitting 164 mmHg Rue, reg cuff BP Diastolic Sitting 86 mmHg Rue, reg cuff BP Systolic Standing 164 mmHg Rue BP Diastolic Standing 80 mmHg Rue Respiratory Rate 18 /min BMI (Body Mass Index) 27.1 kg/m2 Ejection Fraction 60-65% as of 10/27/15 echo 11/10/2015 Height 71 inches 5'11" Weight 197.00 lb with shoes Heart Rate 66 /min 58 BP Systolic Sitting 152 mmHg Lue, reg cuff BP Diastolic Sitting 80 mmHg Lue, reg cuff BP Systolic Standing 150 mmHg Lue BP Diastolic Standing 80 mmHg Lue Respiratory Rate 16 /min BMI (Body Mass Index) 27.5 kg/m2 Ejection Fraction 60-65% as of 10/27/15 echo 10/10/2015 Height 71 inches 5'11" Weight 195.75 lb w/ shoes Heart Rate 58 /min BP Systolic Sitting 144 mmHg LA, reg BP Diastolic Sitting 72 mmHg LA, reg BMI (Body Mass Index) 27.3 kg/m2 Ejection Fraction 55% 02/15/14 Stress ECHO-rest 10/05/2015 Height 71 inches 5'11" Weight 198.00 lb w/shoes Heart Rate 58 /min BP Systolic Sitting 152 mmHg LA reg cuff BP Diastolic Sitting 72 mmHg LA reg cuff BMI (Body Mass Index) 27.6 kg/m2 Ejection Fraction 55 Stress echo 02/15/14 07/29/2014 Height 71 inches 5'11" Weight 194.12 lb Heart Rate 62 /min BP Systolic Sitting 154 mmHg LA reg cuff BP Diastolic Sitting 72 mmHg LA reg cuff Respiratory Rate 12 /min BMI (Body Mass Index) 27.1 kg/m2 09/28/2013 Height 71 inches 5'11" Weight 193.00 lb Heart Rate 58 /min BP Systolic 162 mmHg BP Diastolic 72 mmHg Respiratory Rate 16 /min BMI (Body Mass Index) 26.9 kg/m2 01/22/2013 Height 71 inches 5'11" Weight 196.00 lb Heart Rate 60 /min BP Systolic Sitting 140 mmHg BP Diastolic Sitting 72 mmHg BMI (Body Mass Index) 27.3 kg/m2 08/24/2012 Height 71 inches 5'11" Weight 195.00 lb Heart Rate 60 /min BP Systolic 140 mmHg BP Diastolic 76 mmHg BMI (Body Mass Index) 27.2 kg/m2 01/23/2012 Height 71 inches 5'11" Weight 195.00 lb Heart Rate 60 /min BP Systolic Sitting 132 mmHg L BP Diastolic Sitting 74 mmHg L BMI (Body Mass Index) 27.2 kg/m2 11/29/2011 Height 71 inches 5'11" Weight 198.00 lb Heart Rate 66 /min BP Systolic Sitting 140 mmHg BP Diastolic Sitting 76 mmHg BMI (Body Mass Index) 27.6 kg/m2 01/31/2011 Height 71 inches 5'11" Weight 191.00 lb Heart Rate 58 /min BP Systolic 122 mmHg BP Diastolic 70 mmHg Respiratory Rate 16 /min BMI (Body Mass Index) 26.6 kg/m2 03/22/2010 Height 71 inches 5'11" Weight 190.00 lb Heart Rate 56 /min BP Systolic Sitting 136 mmHg BP Diastolic Sitting 74 mmHg BP Systolic Standing 138 mmHg BP Diastolic Standing 76 mmHg BMI (Body Mass Index) 26.5 kg/m2 12/30/2008 Height 71 inches 5'11" Weight 183.00 lb Heart Rate 60 /min BP Systolic Sitting 124 mmHg L BP Diastolic Sitting 80 mmHg L BMI (Body Mass Index) 25.5 kg/m2 12/31/2007 Height 71 inches 5'11" Weight 190.00 lb Heart Rate 60 /min BP Systolic Sitting 120 mmHg BP Diastolic Sitting 60 mmHg BP Systolic Standing 120 mmHg BP Diastolic Standing 60 mmHg Respiratory Rate 16 /min BMI (Body Mass Index) 26.5 kg/m2 12/31/2006 Height 71 inches 5'11" Weight 191.00 lb shoes on, wt at home 178 lbs Heart Rate 60 /min reg BP Systolic Sitting 140 mmHg BP Diastolic Sitting 80 mmHg BP Systolic Standing 130 mmHg BP Diastolic Standing 70 mmHg BMI (Body Mass Index) 26.6 kg/m2 10/02/2006 Height 71 inches 5'11" Weight 176.00 lb Heart Rate 64 /min BP Systolic Sitting 140 mmHg R BP Diastolic Sitting 70 mmHg R BMI (Body Mass Index) 24.5 kg/m2 08/27/2006 Height 71 inches 5'11" Weight 181.00 lb Heart Rate 64 /min BP Systolic Sitting 118 mmHg L BP Diastolic Sitting 70 mmHg L BP Systolic Standing 120 mmHg L BP Diastolic Standing 70 mmHg L BMI (Body Mass Index) 25.2 kg/m2 07/03/2006 Height 71 inches 5'11" Weight 183.00 lb Heart Rate 50 /min BP Systolic Sitting 150 mmHg R BP Diastolic Sitting 74 mmHg R BP Systolic Standing 140 mmHg R BP Diastolic Standing 70 mmHg R BMI (Body Mass Index) 25.5 kg/m2 01/23/2005 Height 71 inches 5'11" Weight 180.00 lb Heart Rate 54 /min BP Systolic Sitting 120 mmHg L BP Diastolic Sitting 60 mmHg L BP Systolic Standing 110 mmHg L BP Diastolic Standing 64 mmHg L BMI (Body Mass Index) 25.1 kg/m2 05/03/2004 Height 71 inches Weight 185.00 lb Heart Rate 44 /min BP Systolic Sitting 120 mmHg BP Diastolic Sitting 70 mmHg BP Systolic Standing 120 mmHg BP Diastolic Standing 70 mmHg BMI (Body Mass Index) 25.8 kg/m2 Results Test Date Test Result H/L Range Note Cath Panel 10/26/2015 Partial Thrombo Time PTT 34.4 seconds 26.0-36.3 CBC Auto Diff 10/26/2015 White Blood Count 5.1 10^3/uL 4.8-10.8 Red Blood Count 4.75 10^6/uL 4.0-5.4 Hemoglobin 15.3 g/dL 14.0-18.0 Hematocrit 45 % 42-52 Mean Corpuscular Volume 96 fL High 80-94 Mean Corpuscular Hemoglobin 32 pg High 27-31 Mean Corpuscular HGB Conc 34 g/dL 31-36 Red Cell Distribution Width 13 % 10.5-15 Abs Neutrophils 3.5 10^3/uL 1.5-7.7 Abs Lymphocytes 1.0 10^3/uL 1.0-4.8 Abs Monocytes 0.4 10^3/uL 0-0.8 Abs Eosinophils 0.2 10^3/uL 0-0.6 Abs Basophils 0.1 10^3/uL 0-0.2 Abs Nucleated RBC 0.01 10^3/uL Granulocyte % 67.9 % 38-83 Lymphocyte % 19.5 % Low 25-47 Monocyte % 8.4 % 1-9 Eosinophil % 3.0 % 0-6 Basophil % 1.2 % 0-2 Nucleated Red Blood Cells % 0.2 Platelet Count 170 10^3/uL 150-450 1 Inr/Protime 10/26/2015 Inr 0.98 0.89-1.11 Basic Metabolic Panel 10/26/2015 Sodium 137 mmol/L 133-145 Potassium 4.5 mmol/L 3.5-5.0 Chloride 104 mmol/L 101-111 Co2 Carbon Dioxide 29 mmol/L 22-32 Anion Gap 4 mmol/L 2-11 Glucose 107 mg/dL High 70-100 Blood Urea Nitrogen 12 mg/dL 6-24 Creatinine 0.80 mg/dL 0.67-1.17 BUN/Creatinine Ratio 15.0 8-20 Calcium 10.1 mg/dL 8.6-10.3 Egfr Non- 93.7 >60 Egfr 120.6 >60 2 Protime 12/16/2011 Inr 1.00 0.88-1.13 3, 4 Protime 11.8 SEC 10.3-13.5 3, 5 Basic Metabolic Panel 12/16/2011 Sodium 135 mmol/L 135-145 3 Potassium 4.7 mmol/L 3.5-5.0 3 Chloride 104 mmol/L 101-111 3 Co2 (Carbon Dioxide) 25.0 mmol/L 22-32 3 Anion Gap 6.0 mmol/L 2-11 3, 6 Glucose 96 mg/dL 70-100 3 BUN 21 mg/dL 6-24 3 Creatinine 0.8 mg/dL 0.50-1.40 3 One Over Creatinine 1.25 3 BUN/Creatinine Ratio 26.3 High 8-20 3 Calcium 9.7 mg/dL 8.1-9.9 3 eGFR Non- 94.5 > 60 3 eGFR 121.5 > 60 3, 7 CBC With Manual Diff 12/16/2011 White Blood Count 5.9 CUMM 4.8-10.8 3 Red Cell Count 4.47 CUMM Low 4.6-6.2 3 Hemoglobin 14.3 g/dL 14.0-18.0 3 Hematocrit 42 % 42-52 3 Mean Corpuscular Volume 94 um3 80-94 3 Mean Corpuscular Hemoglob 32 pg High 27-31 3 Mean Corpuscular HGB Cone 34 g/dL 32-36 3 Redcell Distribution WDTH 13 % 10.5-15 3 Platelet Count 205 CUMM 150-450 3 Mean Platelet Volume 7.8 um3 7.4-10.4 3 Polysegmented Neutrophil 73 % 38-83 3 Lymphocyte 16 % Low 25-47 3 Monocyte 6 % 0-13 3 Eosinophil 4 % 0-6 3 Basophil 1 % 0-2 3 Absolute Neutrophil Count 4.3 3 RBC Morphology NORMAL 3 Cath Panel 12/16/2011 PTT (Aptt) 31.8 25.15-38.53 3 Laboratory test finding 09/10/2010 CPK (Creatine Kinase) 194 U/L 0-200 CBC With Electronic Diff 09/10/2010 White Blood Count 5.9 CUMM 4.8-10.8 Red Cell Count 4.16 CUMM Low 4.6-6.2 Hemoglobin 13.2 g/dL Low 14.0-18.0 Hematocrit 38 % Low 42-52 Mean Corpuscular Volume 91 um3 80-94 Mean Corpuscular Hemoglob 32 pg High 27-31 Mean Corpuscular HGB Cone 35 g/dL 32-36 Redcell Distribution WDTH 13 % 10.5-15 Platelet Count 274 CUMM 150-450 Mean Platelet Volume 6.5 um3 Low 7.4-10.4 Gran % 72.3 % 38-83 Lymph % 15.7 % Low 25-47 Mononuclear % 8.9 % 1-9 Eosinophil % 2.7 % 0-6 Basophil % 0.4 % 0-2 Abs Lymphs 0.9 Low 1.0-4.8 Abs Mononuclear 0.5 0-0.8 Absolute Neutrophil Count 4.2 1.5-7.7 Abs Eosinophils 0.2 0-0.6 Abs Basophils 0 0-0.2 8 Lipid Profile (Trig/Chol/HDL) 09/10/2010 Triglyceride 83 mg/dL 40-200 Cholesterol 143 mg/dL Less Than 200 9 High Density Lipoprotein 47 mg/dL 40-60 10 Low Density Lipoprotein 79 mg/dL Less Than 100 11 Cholesterol/HDL Ratio 3.04 AVERAGE 1-4.97 Comp Metabolic Panel 09/10/2010 Sodium 137 mmol/L 135-145 Potassium 4.5 mmol/L 3.5-5.0 Chloride 105 mmol/L 101-111 Co2 (Carbon Dioxide) 28.0 mmol/L 22-32 Anion Gap 4.0 mmol/L 2-11 12 Glucose 93 mg/dL 70-100 13 BUN 13 mg/dL 6-24 Creatinine 0.70 mg/dL 0.50-1.40 One Over Creatinine 1.40 BUN/Creatinine Ratio 18.6 8-20 Calcium 9.5 mg/dL 8.1-9.9 Total Protein 6.7 GM/DL 6.2-8.1 Albumin 3.5 GM/DL 3.2-5.2 Globulin 3.2 GM/DL 2-4 Albumin/Globulin Ratio 1.1 1-3 Bilirubin Total 0.5 mg/dL 0.4-1.5 14 Alkaline Phosphatase 77 U/L 39-117 Alt (SGPT) 43 U/L 17-63 Ast (Sgot) 31 U/L 12-42 eGFR Non- 117.8 > 60 eGFR 142.6 > 60 15 1 Platelet count confirmed by smear estimate. 2 Because ethnic data is not always readily available, this report includes an eGFR for both -Americans and non- Americans. The National Kidney Disease Education Program (NKDEP) does not endorse the use of the MDRD equation for patients that are not between the ages of 18 and 70, are , have extremes of body size, muscle mass, or nutritional status, or are non- or non-. According to the National Kidney Foundation, irrespective of diagnosis, the stage of the disease is based on the level of kidney function: Stage Description GFR(mL/min/1.73 m(2)) 1 Kidney damage with normal or decreased GFR 90 2 Kidney damage with mild decrease in GFR 60-89 3 Moderate decrease in GFR 30-59 4 Severe decrease in GFR 15-29 5 Kidney failure <15 (or dialysis) 3 FAX RESULTS TO AT FAX NUMBER [phone] Recommended INR for Patients on Oral Anticoagulants Prophylaxis 2.0 - 3.0 Treatment of thrombosis 2.0 - 3.0 Prevention of embolism 2.0 - 3.0 Prevention of embolism from prosthetic heart valves 2.5 - 3.5 5 DIAGNOSIS,TREATMENT,AND THERAPY MUST BE BASED ON THE INR VALUE ALONE. 6 Anion gap measurement may be of limited value in the presence of any alkalosis, especially in a combined acid base disorder. . 7 Because ethnic data is not always readily available, this report includes an eGFR for both -Americans and non- Americans. The National Kidney Disease Education Program (NKDEP) does not endorse the use of the MDRD equation for patients that are not between the ages of 18 and 70, are , have extremes of body size, muscle mass, or nutritional status, or are non- or non-. According to the National Kidney Foundation, irrespective of diagnosis, the stage of the disease is based on the level of kidney function: Stage Description GFR(mL/min/1.73 m(2)) 1 Kidney damage with normal or decreased GFR 90 2 Kidney damage with mild decrease in GFR 60-89 3 Moderate decrease in GFR 30-59 4 Severe decrease in GFR 15-29 5 Kidney failure <15 (or dialysis) 8 Lymphopenia % 9 CHOLESTEROL INTERPRETATION: Desirable: Less than 200 MG/DL Borderline-High Risk: 200-239 MG/DL High-Risk: 240 MG/DL and over 10 HDL INTERPRETATION: Undesirable: High Risk: Less than 40 MG/DL Desirable: Low Risk: Greater than 60 MG/DL 11 LDL INTERPRETATION: Low Risk Optimal Level: LDL Less than 100 MG/DL Near or Above Optimal: LDL 100-129 MG/DL Borderline High Risk: LDL 130-159 MG/DL High Risk: LDL 160-189 MG/DL Very High Risk: LDL Greater than 189 MG/DL 12 Anion gap measurement may be of limited value in the presence of any alkalosis, especially in a combined acid base disorder. . 13 Note change in reference range as of 07/14/08. The change was based on recommendations from the [place] [employer]. 14 A metabolite of Naproxen, O-desmethylnaproxen, has been shown to interfere with the Jendrassik-Gunnar method for measuring total bilirubin. Samples from patients who have taken Naproxen have shown spurious elevation in total bilirubin levels. 15 Because ethnic data is not always readily available, this report includes an eGFR for both -Americans and non- Americans. The National Kidney Disease Education Program (NKDEP) does not endorse the use of the MDRD equation for patients that are not between the ages of 18 and 70, are , have extremes of body size, muscle mass, or nutritional status, or are non- or non-. According to the National Kidney Foundation, irrespective of diagnosis, the stage of the disease is based on the level of kidney function: Stage Description GFR(mL/min/1.73 m(2)) 1 Kidney damage with normal or decreased GFR 90 2 Kidney damage with mild decrease in GFR 60-89 3 Moderate decrease in GFR 30-59 4 Severe decrease in GFR 15-29 5 Kidney failure <15 (or dialysis) Procedures Date CPT Code Description Status 12/25/2017 99323 Carpal Tunnel Release Completed 12/25/2017 51135 Carpal Tunnel Release Completed 12/08/2017 01789 Stress ECHO Interpretation/Report Hospital Completed 12/08/2017 81928 Treadmill Interp/Report Only Completed 12/08/2017 68551 Stress Test Supervsn W/Out I/R Completed 08/06/2017 07911 EKG Tracing & Interpretation Completed 06/10/2017 93772 EKG, Interpretation Only Completed 05/20/2017 05752 EKG Tracing & Interpretation Completed 07/16/2016 49812 EKG Tracing & Interpretation Completed 03/26/2016 13308 EKG Tracing & Interpretation Completed 03/26/2016 86248 EKG Tracing & Interpretation Completed 12/26/2015 72035 EKG Tracing & Interpretation Completed 11/10/2015 01726 EKG Tracing & Interpretation Completed 11/10/2015 75123 EKG Tracing & Interpretation Completed 10/27/2015 60467 ECHO Transthoracic, Real-Time 2D With Doppler And Color Completed Flow 10/12/2015 38983 ECHO Stress Test Incl Perf Contiuous ekg Monitoring Completed W/Phys Superv 10/12/2015 37745 ECHO Stress Test Incl Perf Contiuous ekg Monitoring Completed W/Phys Superv 10/10/2015 67552 EKG Tracing & Interpretation Completed 10/05/2015 52704 EKG Tracing & Interpretation Completed 07/29/2014 79960 EKG Tracing & Interpretation Completed 02/15/2014 40312 ECHO Stress Test Incl Perf Contiuous ekg Monitoring Completed W/Phys Superv 02/15/2014 60479 ECHO Stress Test Incl Perf Contiuous ekg Monitoring Completed W/Phys Superv 12/01/2013 99130 ECHO Transthoracic, Real-Time 2D With Doppler And Color Completed Flow 10/08/2013 12715 ECHO Transthoracic, Real-Time 2D With Doppler And Color Completed Flow 09/28/2013 87715 EKG Tracing & Interpretation Completed 01/22/2013 33615 EKG Tracing & Interpretation Completed 08/24/2012 15670 EKG Tracing & Interpretation Completed 01/23/2012 26192 EKG Tracing & Interpretation Completed 12/03/2011 74037 Treadmill Interp/Report Only Completed 12/03/2011 19592 Stress Test Supervsn W/Out I/R Completed 12/02/2011 34094 ECHO Transthorasic Realtime 2D W Doppler & Color Completed Flow Hosp 12/02/2011 08239 Pulse Wave/Continuous-Interp.RPT Completed 12/02/2011 10117 Color Flow Doppler/Interp & Reprt Completed 11/29/2011 14968 EKG Tracing & Interpretation Completed 06/12/2011 18300 ECHO Stress Test Incl Perf Contiuous ekg Monitoring Completed W/Phys Superv 01/31/2011 90869 EKG Tracing & Interpretation Completed 03/22/2010 49075 EKG Tracing & Interpretation Completed 12/30/2008 38141 EKG Tracing & Interpretation Completed 08/01/2008 55367 ECHO/Stress Completed 08/01/2008 02563 ECHO/Stress Completed 08/01/2008 80264 ECHO/Stress Completed 08/01/2008 56205 Stress Test Completed 08/01/2008 44784 Stress Test Completed 12/31/2007 09098 EKG Tracing & Interpretation Completed 07/06/2007 98907 Stress Test Completed 07/06/2007 60320 Stress Test Completed 07/06/2007 74419 ECHO/Stress Completed 07/06/2007 03861 ECHO/Stress Completed 07/06/2007 34102 ECHO/Stress Completed 10/15/2006 00949 Color Doppler Completed 10/15/2006 54841 Color Doppler Completed 10/15/2006 51254 Pulse Doppler & Continuous Wave Completed 10/15/2006 11034 Echocardiogram Completed 10/15/2006 12033 Echocardiogram Completed 07/07/2006 46056 Stress Test Completed 07/07/2006 42669 ECHO/Stress Completed 07/07/2006 93179 ECHO/Stress Completed 07/03/2006 14468 EKG Tracing & Interpretation Completed 07/03/2006 48267 EKG Tracing & Interpretation Completed 06/25/2005 36971 ECHO/Stress Completed 06/25/2005 30050 Stress Test Completed 01/23/2005 14987 EKG Tracing & Interpretation Completed 06/22/2004 94385 ECHO/Stress Completed 06/22/2004 66897 Stress Test Completed 05/03/2004 51582 EKG Tracing & Interpretation Completed Encounters Type Date Location Provider CPT E/M Dx Office Visit 11/26/2017 [facility] [place] [address] G56.03 10:00a [facility] Office Visit 08/21/2017 [facility] AMARA Valdez 23764 I25.10 9:45a [facility] I10 E78.00 L29.9 Office Visit 08/06/2017 10:30a [facility] Artemio Fraser 46077 I25.10 Chun I10 E78.00 E78.5 L29.9 R94.31 Office Visit 06/12/2017 1:28p [facility] Anabell, 26587 R65.10 Assoc[facility]ists Chun I25.10 G92 Office Visit 06/11/2017 1:28p [facility] Anabell, 62647 R65.10 [facility] Chun I25.10 G92 Office Visit 06/10/2017 1:28p [facility] Annie Chan, 56696 R65.10 Assoc, Hospitalists Chun I25.10 G92 I10 Office Visit 05/20/2017 8:40a [facility] Artemio Fraser M.D. 79506 R00.1 I25.10 I10 R94.31 L29.9 Office Visit 08/16/2016 8:15a [facility] AMARA Valdez 77874YSP I10 I25.10 R00.1 Office Visit 07/16/2016 10:00a [facility] Artemio Fraser, 70810 I10 Rupert Mccollum R94.31 I25.10 I95.1 Office Visit 03/26/2016 10:30a [facility] AMARA Valdez [id number] I10 I25.10 R94.31 E78.0 Office Visit 02/08/2016 10:30a [facility] Nurse Visit 30973 I10 Office Visit 12/26/2015 1:20p [facility] Artemio Fraser, 92093 I10 [facility] Chun I25.10 Office Visit 12/11/2015 11:15a [facility] Nurse Visit 27540 I10 Office Visit 12/07/2015 2:30p [facility] AMARA Valdez 33457 I25.10 I10 Office Visit 11/10/2015 9:45a [facility] AMARA Valdez 18917 I25.10 E78.0 I10 R94.31 Office Visit 10/10/2015 10:30a [facility] AMARA Valdez 38260NDU R06.00 I25.118 R94.31 E78.0 I10 Office Visit 10/05/2015 10:00a [facility] Artemio Frasre M.D. 27429 E78.0 I34.0 R06.00 R94.31 I10 I25.118 Office Visit 07/29/2014 1:00p [facility] Artemio Fraser M.D. 11802 424.0 401.1 414.01 272.0 Office Visit 09/28/2013 9:00a [facility] Artemio Fraser M.D. 80980 401.1 424.0 272.0 414.01 Office Visit 06/08/2013 1:40p [facility] Parag Lees, 75829 850.0 Of Rupert Mccollum V54.17 Office Visit 01/22/2013 3:20p [facility] Artemio Fraser M.D. 15084 401.1 272.0 424.0 414.01 Office Visit 08/24/2012 3:00p [facility] Artemio Fraser M.D. 64800 401.1 272.0 424.0 Office Visit 01/23/2012 10:00a [facility] Artemio Fraser 24563 414.01 M.D. 401.1 272.0 Office Visit 11/29/2011 9:00a [facility] Artemio Fraser M.D. 24491 401.1 414.01 785.2 782.3 Office Visit 01/31/2011 10:00a [facility] Artemio Fraser 05660 414.01 M.D. 401.1 V45.82 272.0 Office Visit 03/22/2010 8:40a [facility] Artemio Fraser 34742 414.01 M.D. 401.1 V45.82 272.0 Office Visit 12/30/2008 3:20p [facility] Artemio Fraser 42263 414.01 M.DAustin 401.1 785.2 V45.82 Office Visit 12/31/2007 8:40a [facility] Arteimo Fraser 66511 414.01 M.DAustin 401.1 424.0 272.0 Office Visit 12/31/2006 9:00a [facility] Artemio Fraser 06375 414.01 M.D. 272.0 Office Visit 10/02/2006 3:00p [facility] Artemio Fraser M.D. 18899 785.2 414.01 401.1 Office Visit 08/27/2006 10:00a [facility] Artemio Fraser 23138 414.01 M.D. 401.1 272.0 Office Visit 07/03/2006 8:40a [facility] Artemio Fraser 08736 414.01 M.D. 401.1 Office Visit 01/23/2005 9:40a [facility] Artemio Fraser, 72188 414.01 M.D. 272.0 Office Visit 05/03/2004 9:40a [facility] Artemio Fraser, 01739 414.01 M.D. 401.1 272.0 V45.82 Plan of Care Future Appointment(s):01/30/2018 11:30 am - Ad[facility]fo [facility]endez [facility] at [facility]01/19/2018 7:30 am - AMARA Daly at [facility]02/18/2018 1:10 pm - Artemio Fraser M.D. at [facility] 7:30 am - Ad[facility]fo Mendez MD at [facility]
--- NOTE | 2018-01-18 13:08 | UC ---
Throat Pain/Nasal Phillip HPI - HPI Summary HPI Summary: Pt presents with sore throat and right ear pain since yesterday. He tells me that he is undergoing a CTS release tomorrow with ortho and wants to make sure it's not strep. Denies fever, chills, SOB, chest pain, abdominal pain, n/v/d/c. 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 CARDIAC CATH X 2 (TOTAL OF 5 STENTS PLACED);. left inguinal HERNIA REPAIR 6- 8 years ago;. TONSILLECTOMY; - Family History Known Family History: Positive: Hypertension Negative: Cardiac Disease, Diabetes - Social History Occupation: Retired Lives: With Family Alcohol Use: Occasionally Substance Use Type: None Smoking Status (MU): Never Smoked Tobacco Have You Smoked in the Last Year: No Review of Systems Constitutional: Negative Skin: Negative Eyes: Negative ENT: Sore Throat Respiratory: Negative Cardiovascular: Negative Gastrointestinal: Negative Neurological: Negative Psychological: Negative All Other Systems Reviewed And Are Negative: Yes Physical Exam Triage Information Reviewed: Yes Appearance: Well-Appearing, No Pain Distress, Well-Nourished Vital Signs Reviewed: Yes Eyes: Positive: Conjunctiva Clear. Negative: Conjunctiva Inflamed, Discharge ENT: Positive: Hearing grossly normal, Pharynx normal, TMs normal, Uvula midline , Other - Right TM occluded by cerumen. Negative: Pharyngeal erythema, Nasal congestion, Nasal drainage, TM bulging - Left, TM dull - Left, TM red - Left, Tonsillar swelling, Tonsillar exudate, Hoarse voice, Sinus tenderness Neck: Positive: Supple, Nontender, No Lymphadenopathy Respiratory: Positive: Lungs clear, Normal breath sounds, No respiratory distress, No accessory muscle use Cardiovascular: Positive: RRR, No Murmur, Pulses Normal Neurological: Positive: Alert Psychological: Positive: Age Appropriate Behavior Skin: Negative: rashes Throat Pain/Nasal Course/Dx - Course Course Of Treatment: Right ear cerumen impaction. Ear irrigation was performed and TM appeared normal. - Differential Dx/Diagnosis Provider Diagnoses: Right ear cerumen impaction Discharge - Discharge Plan Condition: Stable Disposition: HOME Patient Education Materials: Cerumen Impaction (ED) Referrals: Armando Payne MD [Primary Care Provider] - Additional Instructions: If you develop a fever, shortness of breath, chest pain, new or worsening symptoms - please call your PCP or go to the ED. Your blood pressure was high at todays visit. Please see your primary provider within 4 weeks for recheck and re-evaluation.
[2018-01-18 13:11] VITALS: BP 157/71
== END 2018-01-18 14:30 | disposition home or self-care (01) ==
LOC: UCEAST 11:00
DX: H61.21 Impacted cerumen, right ear (principal); I10 Essential (primary) hypertension; E78.5 Hyperlipidemia, unspecified
CPT/HCPCS: 87651; 99213; G0463

== ENCOUNTER 2018-02-26 11:43 | Day surgery (SDC) | payer MEDICARE, OTHER ==
[~2018-02-26 11:43] MED LIST changes: +Dexamethasone IV* 4 MG/ML 1 ML (4 MG) IV SLOW PU ONE; +Famotidine IV* 10 MG/ML 2 ML (20 mg) IV ONE; -Metoclopramide TAB* 10 MG PO ONE; -Naloxone* 0.4 MG/ML 1 ML VIAL IV PRN; -fentaNYL* 50 MCG/ML 2 ML VIAL (100 MCG VIAL) IV PRN; -oxyCODONE/Acetamin 5/325 MG* TAB PO PRN
[2018-02-26] MEDS ORDERED: Famotidine IV* 10 MG/ML 2 ML (20 mg) ONE (11:55)
[2018-02-26] MEDS ORDERED: Dexamethasone IV* 4 MG/ML 1 ML (4 MG) ONE (11:55)
[2018-02-26] MEDS ORDERED: Bupivacaine 0.25% SDV* 30 ML ONE (15:15)
[2018-02-26] MEDS ORDERED: fentaNYL* 50 MCG/ML 2 ML VIAL (100 MCG VIAL) ONE (15:40)
[2018-02-26] MEDS ORDERED: Propofol* 10 MG/ML 20 ML BTL IV PUSH ONE (15:41)
[2018-02-26] MEDS ORDERED: Lidocaine 2% PF * 5 ML VIAL ONE (15:41)
[2018-02-26] MEDS ORDERED: Naloxone* 0.4 MG/ML 1 ML VIAL IV PRN (15:49)
[2018-02-26] MEDS ORDERED: Ondansetron INJ* 2 MG/ML VIAL IV PRN (15:49)
[2018-02-26] MEDS ORDERED: Ibuprofen TAB* 600 MG PO PRN (15:49)
[2018-02-26] MEDS ORDERED: fentaNYL* 50 MCG/ML 2 ML VIAL (100 MCG VIAL) IV PRN (15:49)
[2018-02-26] MEDS ORDERED: HYDROcodone/ACETAMIN 5-325 MG* 1 TAB PO PRN (15:49)
[2018-02-26 17:26] VITALS: BP 134/79
--- NOTE | 2018-02-27 13:55 | OP ---
DATE OF OPERATION: 02/26/18 [facility] DATE OF : 39 SURGEON: Adolfo Mendez MD [employer]OR [employer]: AMARA Daly. ANESTHESIOLOGIST: Dr. Spring. ANESTHESIA: Local MAC. PRE-OP DIAGNOSIS: Left carpal tunnel syndrome. POST-OP DIAGNOSIS: Left carpal tunnel syndrome. OPERATIVE PROCEDURE: Left open carpal tunnel release. INDICATIONS: Hermes has done very well with the right carpal tunnel release. He has left carpal tunnel syndrome. He wanted to proceed with the left carpal tunnel release. ESTIMATED BLOOD LOSS: 2 mL. COMPLICATIONS: None. FINDINGS: As expected. DESCRIPTION OF PROCEDURE: Hermes was seen in the preoperative holding area. The correct side, site, and procedure were identified. We came back to the operating room. The arm was prepped and draped in the usual fashion. A time- out was performed. I exsanguinated the arm with an Esmarch and the tourniquet was inflated to 250 mmHg. A standard 2 to 3 cm longitudinal incision was made in the typical location for an open carpal tunnel release. Dissection was carried down through the subcutaneous tissue and palmar fascia. The transverse carpal ligament was released just off the radial aspect of the hook of the hamate from distal to proximal. When I came proximal, I released the fascia and subcutaneous tissue and retracted it volarly and ulnarly and then released remainder of the transverse carpal ligament and the distal antebrachial fascia with a tenotomy scissors. Once there was absolutely no compression on the nerve , we irrigated out the wound. Skin was closed with 4-0 nylon suture. Wound was dressed with Xeroform, 4x4s, sterile Webril, and an Dieudonne bandage. He was awoken up and taken to the recovery room in stable condition. [id number]/[facility] #: [id number] [facility]
== END 2018-02-26 16:52 | disposition home or self-care (01) ==
LOC: OREAST 11:43
PROVIDERS: ATTEND Orthopaedic Surgery Hand Surgery
DX: G56.01 Carpal tunnel syndrome, right upper limb (principal); I10 Essential (primary) hypertension; E78.00 Pure hypercholesterolemia, unspecified; I25.10 Atherosclerotic heart disease of native coronary artery without angina pectoris; E03.9 Hypothyroidism, unspecified; Z95.5 Presence of coronary angioplasty implant and graft; G47.33 Obstructive sleep apnea (adult) (pediatric)
CPT/HCPCS: J1100; J2704; J3010